=== PATIENT | male | born 1960 | race Caucasian/White ===

== ENCOUNTER 2017-10-28 05:30 | Day surgery (SDC) | payer OTHER ==
[2017-10-28] VITALS (12 sets, daily range): BP systolic 129–145; BP diastolic 64–86; PULSE 64–84; RESP 12–18; Ht 190.5 cm; Wt 111.0 kg
[~2017-10-28] VITALS: Ht 190.5 cm; Wt 111.0 kg
[2017-10-28] MEDS ORDERED: ASPI-664 PO (05:45)
[2017-10-28 06:09] LABS: BASOPHIL # 0.1 10^3/ul (0.0-0.1); BASOPHILS % 0.8 % (0.0-2.0); EOSINOPHILS # 0.3 10^3/ul (0.0-0.5); EOSINOPHILS % 4.7 % (0.0-7.0); HEMATOCRIT 50.2 % (42.0-52.0); HEMOGLOBIN 16.7 g/dl (14.0-18.0); LYMPHOCYTES # 1.7 10^3/ul (0.8-2.9); LYMPHOCYTES % 26.7 % (15.0-51.0); MEAN CORPUSCULAR HEMOGLOBIN 29.2 pg (29.0-33.0); MEAN CORPUSCULAR HGB CONC 33.3 g/dl (32.0-37.0); MEAN CORPUSCULAR VOLUME 87.9 fl (82.0-101.0); MEAN PLATELET VOLUME 11.1 fl (7.4-10.4); MONOCYTE # 0.6 10^3/ul (0.3-0.9); MONOCYTES % 9.2 % (0.0-11.0); NEUTROPHIL # 3.7 10^3/ul (1.6-7.5); NEUTROPHILS % 58.1 % (39.0-77.0); PLATELET COUNT 270 10^3/UL (140-415); RED BLOOD COUNT 5.71 10^6/ul (4.70-6.10); RED CELL DISTRIBUTION WIDTH 12.7 % (11.5-14.5); WHITE BLOOD COUNT 6.4 10^3/ul (4.8-10.8)
[2017-10-28 06:39] LABS: INR 0.86; PROTIME 11.8 Sec (11.9-14.9); PT RATIO 0.9
[2017-10-28 06:40] LABS: PARTIAL THROMBOPLASTIN TIME 31.7 Sec (25.0-35.0)
[2017-10-28] MEDS ORDERED: LIDOCAINE 1% (MPF) 30 ML INJ ONE (06:55)
[2017-10-28] MEDS ORDERED: BUPIVACAINE 0.5% (SDV) 30 ML INJ ONE (06:55)
[2017-10-28 06:56] LABS: CALCIUM 9.6 mg/dl (8.4-10.2); CREATININE 1.17 mg/dl (0.61-1.24)
[2017-10-28] MEDS ORDERED: FENTAnyl 50 MCG/ML VIAL IV PRN ×3 (07:30)
[2017-10-28] MEDS ORDERED: ONDANSETRON 4 MG INJ IV PRN (07:30)
[2017-10-28] MEDS ORDERED: HYDROmorphONE (0.2 MG/ML) 10ML SYG IV PRN ×3 (07:30)
[2017-10-28] MEDS ORDERED: MIDAZOLAM 1 MG/ML 2 ML INJ IV PRN (07:30)
[2017-10-28] MEDS ORDERED: MEPERIDINE 25 MG INJ IV PRN (07:30)
[2017-10-28] MEDS ORDERED: hydrALAzine 20 MG INJ IV PRN (07:30)
[2017-10-28] MEDS ORDERED: EPHEDrine SULFATE 50 MG/5 ML SYG IV PRN (07:30)
[2017-10-28] MEDS ORDERED: LABETALOL HCL 20MG INJ IV PRN (07:30)
[2017-10-28] MEDS ORDERED: OXYCODONE/ACETAMINOPHEN (5/325) TAB PO PRN ×2 (07:30)
[2017-10-28] MEDS ORDERED: METOCLOPRAMIDE 10 MG INJ IV PRN (07:30)
[2017-10-28] MEDS ORDERED: DIPHENHYDRAMINE 50 MG INJ IV PRN (07:30)
[2017-10-28] MEDS ORDERED: PROPOFOL 20 ML ONE (07:37)
[2017-10-28] MEDS ORDERED: MEPERIDINE 100 MG INJ ONE (07:37)
[2017-10-28] MEDS ORDERED: LIDOCAINE 2% (SDV) 5 ML INJ ONE (07:37)
--- NOTE | 2017-10-28 07:43 | HPN ---
Date/Time of Note Date/Time of Note DATE: 10/28/17 TIME: 07:43 Interval H&P Admission Note Pt. seen H&P reviewed: No system changes BONNY TRISTAN Oct 28, 2017 07:43
[2017-10-28] MEDS ORDERED: CLINDAMYCIN 900 MG/D5W (PMX) 50 ML IVPB ONE (08:35)
[2017-10-28] MEDS ORDERED: ONDANSETRON 4 MG INJ ONE (08:44)
--- NOTE | 2017-10-28 08:45 | OPPN ---
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
--- NOTE | 2017-10-28 17:35 | OPR ---
DATE OF OPERATION: 10/28/2017 SURGEON: Micah Osuna MD ANESTHESIA: General. PREOPERATIVE DIAGNOSIS: 1. Bilateral carpal tunnel syndrome. 2. Right middle finger trigger. POSTOPERATIVE DIAGNOSIS: 1. Bilateral carpal tunnel syndrome. 2. Right middle finger trigger. OPERATION PERFORMED: 1. Right carpal tunnel release, open. 2. Right middle finger trigger finger release. 3. Left carpal tunnel release, open. OPERATIVE FINDINGS AT SURGERY: 1. Compression of the median nerve at the carpal tunnel bilaterally with thickening of the transverse carpal ligament. 2. Compressive tenosynovitis of the right middle finger flexor tendons at the A1 jd. INDICATION FOR PROCEDURE: A 57-year-old male with longstanding bilateral carpal tunnel symptoms and middle finger trigger. He failed conservative management including injections and elected to proceed with surgical intervention understanding the risks and benefits. OPERATIVE PROCEDURE: The patient was seen in the preoperative area. All further questions were answered. Again, he gave informed consent understanding the risks and benefits. He has taken to the operative suite and placed in supine position. Clindamycin 900 mg was given and tourniquet placed on the bilateral upper extremities. Bilateral upper extremities were prepped with ChloraPrep stick and draped in usual sterile fashion. Attention was first turned to the right side and Esmarch bandage was used to exsanguinate the extremity and tourniquet inflated to 250 mmHg. A 2-cm incision at the base of the palm was utilized for the carpal tunnel release and sharp dissection carried down through skin and subcutaneous tissue. The palmar aponeurosis was incised along its ulnar border and retractors were deepened. The transverse carpal ligament was incised along its ulnar border approximately 3 mm radial to the hook of the hamate. Retractor placed distally and the distal extent of the transverse carpal ligament was divided under direct visualization. Attention was turned proximally and the retractor placed and proximal extent of the transverse carpal ligament was divided under direct visualization. The wound was copiously irrigated and skin closed with 4-0 nylon. Attention was then turned to the middle finger and an oblique incision within the distal palmar crease was utilized where sharp dissection carried down through skin and subcutaneous tissue. The flexor sheath was identified and Ragnell retractors were used to protect the neurovascular structures and the A1 jd was incised along its midline. The proximal 1 mm of the A2 jd was also incised with a sharp knife. Attention was turned proximal and the PA jd was also incised. A traction tenolysis was performed with the FDS and FDP tendons and they were found to glide smoothly. The wound was copiously irrigated and skin closed with 4-0 nylon. Xeroform placed over the wounds followed by sterile gauze, Webril, and bias dressing. Tourniquet deflated after 23 minutes. Attention turned to the left side and Esmarch bandage was used to exsanguinate the extremity and tourniquet inflated to 250 mmHg. An identical procedure for carpal tunnel release was performed on the left side with a 2-cm incision and division of the transverse carpal ligament. The ligament was completely divided under direct visualization and wound was copiously irrigated. Skin closed with 4-0 nylon. Xeroform placed over the wound followed by sterile gauze, Webril, and bias dressing. Tourniquet deflated after 10 minutes on the left side. The patient was awakened from anesthesia and taken to the postoperative suite in stable condition. Tolerated procedure well without complication. SPECIMENS: None. ESTIMATED BLOOD LOSS: 5 mL. COUNTS: Sponge, instrument, and needle counts correct. TOURNIQUET TIME: Right side 23 minutes. Left side 10 minutes. CONDITION AT DISCHARGE: Stable. Dictated By: Micah Osuna MD /[email or web address] /Document#: [id number]
== END 2017-10-28 11:08 | disposition home or self-care (01) ==
LOC: SDS 05:30
PROVIDERS: ATTEND Orthopaedic Surgery Hand Surgery
DX: G56.03 Carpal tunnel syndrome, bilateral upper limbs (principal); M65.331 Trigger finger, right middle finger; E66.9 Obesity, unspecified
CPT/HCPCS: 26055; 64721; 80048; 85025; 85610; 85730; J2175; J2405

== ENCOUNTER 2018-07-07 12:30 | Day surgery (SDC) | END 2018-07-07 17:55 | disposition home or self-care (01) ==